=== PATIENT | male | born 1950 | race Caucasian/White ===

== ENCOUNTER 2017-09-30 19:31 | Emergency (ER) | payer MEDICARE ==
[~2017-09-30] VITALS: Ht 172.7 cm; Wt 81.6 kg
[~2017-09-30 19:31] MED LIST: ATIVAN0.5 MG PO; Carafate1 GM PO; LEVOTHYROXINE0.1 MG PO; LIPITOR40 MG PO; LISINOPRIL10 MG PO; Lopressor25 MG PO; NORVASC10 MG PO; PRILOSEC20 MG PO; PROTONIX TR40 MG PO; PROVENTIL0.09 MG/A1 INH; SYMBICORT1 AE1 INH; Synthroid,Lev150 MCG PO; TAMSULOSIN HYD0.4 MG PO; VENLAFAXINE HY150 M2 PO; VITAMIN D50000 I2 PO
[2017-09-30] MEDS ORDERED: AUGMENTIN 875875 MG PO (19:51)
== END 2017-09-30 20:08 | disposition home or self-care (01) ==
LOC: ED 19:31
DX: S61.432A Puncture wound without foreign body of left hand, initial encounter (principal); Z23 Encounter for immunization; Z79.899 Other long term (current) drug therapy; W54.0XXA Bitten by dog, initial encounter; Y93.89 Activity, other specified; Y92.89 Other specified places as the place of occurrence of the external cause; Y99.8 Other external cause status

== ENCOUNTER → 2020-10-11 | Outpatient (CLI) | payer OTHER, MEDICARE ==
[~2020-10-11] MED LIST changes: +AUGMENTIN 875875 MG PO
== END | disposition home or self-care (01) ==
LOC: RAD 15:32
PROVIDERS: ATTEND Chiropractor
DX: M47.812 Spondylosis without myelopathy or radiculopathy, cervical region (principal); R10.2 Pelvic and perineal pain; R51.9 Headache, unspecified